=== PATIENT | female | born 1955 | race Caucasian/White ===

== ENCOUNTER 2018-06-14 08:22 | Day surgery (SDC) | payer BC ==
[~2018-06-14] VITALS: Ht 154.9 cm; Wt 48.7 kg
[2018-06-14 08:45] VITALS: Ht 154.9 cm; Wt 48.7 kg
[2018-06-14 09:52] VITALS: BP 128/65; PULSE 68; RESP 20
[2018-06-14] MEDS ORDERED: MIDAZOLAM 1 MG/ML 2 ML INJ ONE (10:31)
[2018-06-14] MEDS ORDERED: FENTAnyl 50 MCG/ML VIAL ONE (10:32)
[2018-06-14 10:51] VITALS: BP 116/61; PULSE 71; RESP 14
[2018-06-14 13:29] VITALS: BP 117/80; PULSE 84; RESP 18
[2018-06-14 13:33] VITALS: BMI 24.1
== END 2018-06-14 15:39 | disposition home or self-care (01) ==
LOC: GIL 08:22
PROVIDERS: ATTEND Internal Medicine Gastroenterology
DX: Z12.11 Encounter for screening for malignant neoplasm of colon (principal); K64.8 Other hemorrhoids
CPT/HCPCS: 45378; J2250; J3010